=== PATIENT | female | born 1995 | race Caucasian/White ===

== ENCOUNTER → 2021-05-24 06:43 | Outpatient (CLI) | payer OTHER, SELFPAY ==
--- NOTE | 2021-05-24 | DI.MRI.S_ITS ---
PROCEDURE: MR KNEE RT WO CON INDICATIONS: Sprain of medial collateral ligament of unspecifie TECHNIQUE: Noncontrast sagittal PD fast spin echo and T2 fast spin echo with fat saturation, sagittal 3-D FLASH with fat saturation; coronal T1 spin echo and PD fast spin echo with fat saturation, and axial PD fast spin echo with fat saturation through the knee. COMPARISON: None. FINDINGS: Menisci: Medial meniscus: No definite discrete tear visualized however there is slight partial extrusion. Lateral meniscus: Intact. Cruciate ligaments: Anterior cruciate ligament: Intact. Posterior cruciate ligament: Intact. However there may be avulsion fracture at the tibial attachment, as below. Medial structures: The medial collateral ligament: Complete rupture of the medial collateral ligament. Extensive adjacent soft tissue edema. Semimembranosus tendon: Acute strain or chronic tendinopathy of the semimembranosus tendon, with intrasubstance T2 hyperintense signal changes. Visualized pes anserinus tendons: Grossly intact although there is adjacent soft tissue edema raising the possibility of low-grade strain. Bursal fluid: none. Lateral structures: The lateral collateral ligament intact. Biceps femoris tendon appears intact. Popliteus tendon grossly unremarkable. Iliotibial band appears intact. Anterior structures: Quadriceps tendon: Intact. Medial patellofemoral ligament: Intact. Lateral patellofemoral ligament: Intact. Patellar tendon: Mild tendinopathy. Anterior soft tissues: Prepatellar and superficial infrapatellar subcutaneous edema/fluid. Deep infrapatellar region: Normal. Bones and cartilage: Marrow: Fractures involving the fibular head, and lateral tibial plateau with nondisplaced appearance. No definite articular surface incongruity. There is also marrow contusion involving the posterior lateral femoral condyle and the posterior tibial plateau in the region of the PCL raising possibility of avulsion fracture. Possible nondisplaced fracture line seen at the base of the tibial eminence. Medial compartment: Diffuse partial-thickness loss of the femoral and tibial articular cartilage. Lateral compartment: Diffuse partial-thickness loss surface fraying of the femoral cartilage. The tibial cartilage appears grossly intact. Patellofemoral compartment: No focal chondral defect. Partial-thickness loss of the posterior lateral femoral condyle technically cartilage. Joint space: Effusion: Large joint effusion. Popliteal fossa: No Caputo's cyst. Loose bodies: None. IMPRESSION: Complete rupture of the medial collateral ligament, with adjacent soft tissue edema. Multiple nondisplaced fractures involving lateral tibial plateau and fibular head. Additional acute marrow contusion involving the posterolateral femoral condyle and the posterior tibial plateau with possible nondisplaced fracture line seen at the base of the tibial eminence. This may reflect avulsion fracture at the tibial attachment of the PCL. Large joint effusion Semimembranosus insertional strain and or tendinopathy. Strain of the pes anserinus tendons, with adjacent soft tissue edema. Slight partial extrusion of the medial meniscus however no discrete tear by strict criteria identified. Dictated by: Joselito Hightower M.D. on 05/24/2021 at 8:50 Approved by: Joselito Hightower M.D. on 05/24/2021 at 9:03
== END ==
PROVIDERS: Referring Provider Orthopaedic Surgery; Visit Provider Orthopaedic Surgery
DX: S83.411A Sprain of medial collateral ligament of right knee, initial encounter (principal); S82.144A Nondisplaced bicondylar fracture of right tibia, initial encounter for closed fracture; S82.831A Other fracture of upper and lower end of right fibula, initial encounter for closed fracture; M25.461 Effusion, right knee; X58.XXXA Exposure to other specified factors, initial encounter
CPT/HCPCS: 73721